=== PATIENT | female | born 1960 | race African-American/Black ===

== ENCOUNTER 2022-03-15 03:58 | Emergency (ER) | payer OTHER ==
[~2022-03-15 03:58] MED LIST: LISINOPRIL-HCT1 EAC1 PO; NAPROXEN500 MG PO; SKELAXIN800 MG PO
[2022-03-15 04:28] LABS: BASOPHIL 0.4 % (0-2); EOSINOPHIL 1.4 % (0-5); HCT 34.5 % (37.0-47.0); HGB 11.4 g/dl (12.5-16.0); LYMPHOCYTE 37.9 % (15-48); MCH 30.7 pg (25.0-31.0); MONOCYTE 9.3 % (0-12); MPV 11.3 fL (6.0-9.5); NEUTROPHIL 50.8 % (41-80); NRBC 0; PLT 208 K/uL (150-400); RBC 3.71 M/uL (4.20-5.40); RDW 11.9 % (11.5-14.0); WBC 4.8 K/uL (4.0-10.5)
[2022-03-15 04:35] LABS: INR 1.09 (0.9-1.2); PROTHROMBIN TIME 13.5 SECONDS (11.8-13.4); PTT 23.4 SECONDS (24.4-34.7)
[2022-03-15 04:45] LABS: BILIRUBIN - TOTAL 0.3 mg/dL (0.2-1.0); BUN/CREAT RATIO (CALC) 16.5 RATIO; CREATININE 0.91 mg/dL (0.51-0.95); GLOBULIN (CALCULATION) 3.5 g/dL; POTASSIUM 3.6 mmol/L (3.5-5.1); TOTAL PROTEIN 6.5 g/dL (6.4-8.2)
[2022-03-15] MEDS ORDERED: PROMETHAZINE/C120 ML PO (06:40)
[2022-03-15] MEDS ORDERED: AZITHROMYCIN250 MG PO (06:40)
[2022-03-15] MEDS ORDERED: PREDNISONE 20MG20 MG PO (06:40)
[2022-03-15 06:57] LABS: INFLUENZA A NAA NEGATIVE (NEGATIVE)
[2022-03-15 07:06] LABS: CORONAVIRUS 2019 SARS-COV-2 POSITIVE (NEGATIVE)
== END 2022-03-15 06:50 | disposition home or self-care (01) ==
LOC: FER 03:58
PROVIDERS: Internal Medicine
DX: U07.1 COVID-19 (principal); J12.82 Pneumonia due to coronavirus disease 2019; D64.9 Anemia, unspecified; I10 Essential (primary) hypertension
CPT/HCPCS: 36415; 71045; 71275; 80053; 84484; 85025; 85610; 85730; 93005; J1100; Q9967; U0002